=== PATIENT | male | born 1995 | race Caucasian/White ===

== ENCOUNTER 2017-01-06 18:44 | Emergency (ER) | payer MEDICAID ==
[~2017-01-06] VITALS: Ht 180.3 cm; Wt 77.1 kg
[2017-01-06 18:50] VITALS: BP 130/72; PULSE 73; RESP 18; TEMP 98.3; O2SAT 94
--- NOTE | 2017-01-06 19:01 | NUR ---
Patient to ER bed H1 to gown for evaluation. Side rails up. Report given to Michell
--- NOTE | 2017-01-06 19:03 | NUR ---
Patient is in stable condition. Patient states that he fell from skateboard on Friday and was seen by school physician. Patient states that he has a fracture in his left wrist. Patient currently has an wrist support on. Patient denies any pain. No other complaints/injuries per patient or as noted.
--- NOTE | 2017-01-06 19:04 | NUR ---
BORIS Ruiz at bedside.
[2017-01-06] MEDS ORDERED: IBUPROFEN 600 MG TABLET PO ONE (19:15)
--- NOTE | 2017-01-06 19:35 | NUR ---
Patient off the unit for Xray, ambulatory.
[2017-01-06 20:06] VITALS: BP 122/70; PULSE 75; RESP 18; TEMP 98.1; O2SAT 97
--- NOTE | 2017-01-06 20:06 | NUR ---
Patient given written and verbal discharge instructions and verbalizes understanding. ER [facility] [employer]OOKER Cassie Prajapati discussed with patient the results and treatment provided. Patient in stable condition. ID arm band removed. Rx of motrin given. Patient educated on pain management and to follow up with PMD. Pain Scale 0/10. Opportunity for questions provided and answered.
== END 2017-01-06 20:06 | disposition home or self-care (01) ==
LOC: SED 18:44
DX: S62.012A Displaced fracture of distal pole of navicular [scaphoid] bone of left wrist, initial encounter for closed fracture (principal); V00.131A Fall from skateboard, initial encounter; Y93.51 Activity, roller skating (inline) and skateboarding; Y92.89 Other specified places as the place of occurrence of the external cause; Y99.8 Other external cause status
CPT/HCPCS: 99284